=== PATIENT | male | born 1965 | race Caucasian/White ===

== ENCOUNTER 2017-10-23 13:29 | Emergency (ER) | payer MEDICAID ==
[~2017-10-23] VITALS: Ht 180.3 cm; Wt 79.0 kg
[2017-10-23 13:45] VITALS: BP 113/93
[2017-10-23] MEDS ORDERED: ketorolac trometh inj. 60 MG/2 ML VIAL IM ONE (14:25)
== END 2017-10-23 15:01 | disposition home or self-care (01) ==
LOC: ER 13:29
DX: M54.5 Low back pain (principal); G89.29 Other chronic pain
CPT/HCPCS: 96372; 99283; J1885